=== PATIENT | female | born 1955 | race Caucasian/White ===

== ENCOUNTER → 2018-01-20 16:32 | Outpatient (CLI) | payer MEDICAID, SELFPAY ==
[2018-01-20 19:37] LABS: Calcium 10.3 mg/dL (8.5-10.1); Free T4 (Free Thyroxine) 1.58 ng/dl (0.76-1.46); Triiodothryronine (T3) Uptake 34 % (31-39)
[2018-01-20 19:47] LABS: Thyroid Stimulating Hormone < 0.01 uIU/ml (0.358-3.740)
== END ==
PROVIDERS: Family Provider Emergency Medicine; PCP Nurse Practitioner Family; Visit Provider Otolaryngology
DX: E04.9 Nontoxic goiter, unspecified (principal)
CPT/HCPCS: 36415; 82310; 84439; 84443; 84479

== ENCOUNTER → 2018-02-07 12:59 | Outpatient (CLI) | payer MEDICAID, SELFPAY ==
--- NOTE | 2018-02-07 13:02 | US_ITS ---
US thyroid HISTORY: Multinodular goiter ITS.REASON: goiter ORDERING PHYSICIAN: Julio Laureano MD PATIENT AGE: 62 years Comparison: None FINDINGS: The right lobe is 5.1 x 3.1 x 4.2 cm. Multiple nodules are once again noted in both cystic and solid components. As mentioned previously is difficult to separate the nodules due to their multiplicity and similar characteristics. The largest single appearing nodule is in the upper pole at 2.7 cm have an a spongiform appearance. This nodule previously measured 2.2 cm. No highly suspicious nodules are evident. The left lobe is 4.7 x 2.7 x 2.4 cm also containing numerous nodules difficult to separate. The largest nodules in the mid polar region at 2.2 cm. IMPRESSION: Multinodular goiter as described above.
== END ==
PROVIDERS: PCP Nurse Practitioner Family; Visit Provider Otolaryngology
DX: E04.9 Nontoxic goiter, unspecified (principal)
CPT/HCPCS: 76536

== ENCOUNTER → 2018-02-14 16:16 | Outpatient (CLI) | payer MEDICAID, SELFPAY ==
[2018-02-17 06:59] LABS: Parathyroid Hormone Intact 49 pg/mL (15-65)
== END ==
PROVIDERS: Visit Provider Otolaryngology
DX: E04.9 Nontoxic goiter, unspecified (principal)
CPT/HCPCS: 36415; 82330; 83970

== ENCOUNTER → 2018-02-22 12:01 | Outpatient (CLI) | payer MEDICAID, SELFPAY ==
--- NOTE | 2018-02-22 12:09 | US_ITS ---
FNA w guidance, US thyroid HISTORY: Thyroid nodules, dominant right nodule increasing in size ITS.REASON: THYROID NODULES ORDERING PHYSICIAN: uJlio Laureano MD PATIENT AGE: 62 years COMPARISON: None Prebiopsy ultrasound: Prebiopsy planning performed with ultrasound and a straight multiple thyroid nodules the largest in the upper lobe at 2.4 x 1.5 cm having both cystic and solid component. Biopsy planning performed TECHNIQUE: Following obtaining informed consent, using aseptic technique and local anesthesia with buffered lidocaine, fine-needle aspiration was performed of the nodule of interest using sonographic guidance. 3 passes were made into the nodule with a 25-gauge needle. Specimen was given to cytology. The patient tolerated the procedure well without evidence of immediate complications and left the ultrasound suite in stable condition. CYTOLOGY:Negative for malignancy, consistent with a benign goitrous follicular nodule IMPRESSION: Successful ultrasound-guided fine-needle aspiration of the dominant right thyroid nodule showing benign findings
--- NOTE | 2018-02-22 12:09 | US_ITS ---
FNA w guidance, US thyroid HISTORY: Thyroid nodules, dominant right nodule increasing in size ITS.REASON: THYROID NODULES ORDERING PHYSICIAN: Julio Laureano MD PATIENT AGE: 62 years COMPARISON: None Prebiopsy ultrasound: Prebiopsy planning performed with ultrasound and a straight multiple thyroid nodules the largest in the upper lobe at 2.4 x 1.5 cm having both cystic and solid component. Biopsy planning performed TECHNIQUE: Following obtaining informed consent, using aseptic technique and local anesthesia with buffered lidocaine, fine-needle aspiration was performed of the nodule of interest using sonographic guidance. 3 passes were made into the nodule with a 25-gauge needle. Specimen was given to cytology. The patient tolerated the procedure well without evidence of immediate complications and left the ultrasound suite in stable condition. CYTOLOGY:Negative for malignancy, consistent with a benign goitrous follicular nodule IMPRESSION: Successful ultrasound-guided fine-needle aspiration of the dominant right thyroid nodule showing benign findings
== END ==
PROVIDERS: PCP Nurse Practitioner Family; Visit Provider Otolaryngology
DX: E04.1 Nontoxic single thyroid nodule (principal)
CPT/HCPCS: 10022; 76536

== ENCOUNTER → 2018-06-14 12:46 | Outpatient (CLI) | payer OTHER, SELFPAY ==
--- NOTE | 2018-06-14 12:48 | US_ITS ---
US thyroid HISTORY: Follow-up multinodular goiter ITS.REASON: Goiter ORDERING PHYSICIAN: Julio Laureano MD PATIENT AGE: 62 years Comparison: 02/07/2018, 06/27/2015 FINDINGS: The right lobe is 6.3 x 2.4 x 4 cm. Multinodular goiter is once again noted with numerous bilateral complex spongiform-appearing nodules with the largest nodule on the right measuring up to 2.7 x 1.9 cm in the mid polar region similar to the previous exam. The left lobe measures 5.2 x 2.2 x 2.2 cm with multi spongiform-appearing nodules. The largest nodule on the left is 1.9 x 1.2 cm The isthmus is slightly thickened at 4 mm. There are small nodules at the isthmus 1.5 cm on the right and 1.4 cm on the left. IMPRESSION: No change multinodular goiter
[2018-06-14 23:21] LABS: Free T4 (Free Thyroxine) 1.69 ng/dl (0.76-1.46)
[2018-06-14 23:30] LABS: Thyroid Stimulating Hormone < 0.01 uIU/ml (0.358-3.740)
== END ==
PROVIDERS: PCP Nurse Practitioner Family; Visit Provider Otolaryngology
DX: E04.9 Nontoxic goiter, unspecified (principal)
CPT/HCPCS: 36415; 76536; 82330; 84439; 84443

== ENCOUNTER → 2018-06-14 13:49 | Outpatient (CLI) | payer OTHER, SELFPAY | PROVIDERS: Visit Provider Otolaryngology | DX: E04.9 Nontoxic goiter, unspecified (principal) ==

== ENCOUNTER → 2018-08-23 14:52 | Outpatient (POV) | payer OTHER, SELFPAY | PROVIDERS: Visit Provider Dermatology | DX: Z00.00 Encounter for general adult medical examination without abnormal findings (principal) ==

== ENCOUNTER → 2018-09-07 10:07 | Outpatient (CLI) | payer OTHER, SELFPAY ==
[2018-09-07 14:14] LABS: Basophils % 0.5 % (0.1-2.0); Eosinophils # 0.3 K/mm3 (0.0-0.4); Hematocrit 44.2 % (37.0-47.0); Hemoglobin 14.1 g/dL (12.2-16.2); Lymphocytes # 1.8 K/mm3 (0.7-4.5); Lymphocytes % 24.4 % (10-50); Mean Corpuscular Hemoglobin 28.6 pg (27.0-31.2); Mean Corpuscular Volume 89.4 fl (81-99); Mean Platelet Volume 8.3 fl (7.4-10.4); Monocytes # 0.5 K/mm3 (0.1-1.0); Monocytes % 7.3 % (1.7-9.3); Neutrophils # 4.7 K/mm3 (1.8-7.8); Neutrophils % 63.9 % (37.0-80.0); Platelet Count 389 K/mm3 (142-424); Red Blood Count 4.95 M/mm3 (4.20-5.40); White Blood Count 7.4 K/mm3 (4.8-10.8)
[2018-09-07 15:11] LABS: Alanine Aminotransferase 23 U/L (12-78); Albumin Level 3.8 gm/dL (3.4-5.0); Albumin/Globulin Ratio 1.4 (1.1-1.8); Alkaline Phosphatase 93 U/L (46-116); Anion Gap 13.3 mEq/L (5-15); Aspartate Amino Transferase 19 U/L (15-37); Bilirubin,Total 0.3 mg/dL (0.2-1.0); Blood Urea Nitrogen 14 mg/dL (7-18); Calcium 10.4 mg/dL (8.5-10.1); Carbon Dioxide 26 mmol/L (21.0-32.0); Chloride 98 mmol/L (98-107); Creatinine,Serum 0.83 mg/dL (0.55-1.02); Estimated Glomerular Filt Rate 70 ml/min (>60); Free T4 (Free Thyroxine) 1.52 ng/dl (0.76-1.46); GFR (African American) 84 ML/MIN (>60); Globulin 2.8 gm/dl (1.3-3.2); Glucose 98 mg/dL (74-106); Potassium 4.3 mmoL/L (3.5-5.1); Sodium 133 mmol/L (136-145); Thyroid Stimulating Hormone 0.01 uIU/ml (0.358-3.740); Total Protein,Serum 6.6 gm/dL (6.4-8.2)
[2018-09-09 20:43] LABS: Parathyroid Hormone Intact 40 pg/mL (15-65); Triiodothyronine (T3) Free 5.8 pg/mL (2.0-4.4)
== END ==
PROVIDERS: PCP Nurse Practitioner Family; Visit Provider Internal Medicine Endocrinology, Diabetes & Metabolism
DX: E05.20 Thyrotoxicosis with toxic multinodular goiter without thyrotoxic crisis or storm (principal); E83.52 Hypercalcemia; E34.9 Endocrine disorder, unspecified; R94.6 Abnormal results of thyroid function studies
CPT/HCPCS: 36415; 80053; 83970; 84439; 84443; 84481; 85025

== ENCOUNTER → 2018-11-08 09:21 | Outpatient (CLI) | payer OTHER, SELFPAY ==
[2018-11-08 14:22] LABS: Basophils % 0.5 % (0.1-2.0); Eosinophils # 0.1 K/mm3 (0.0-0.4); Eosinophils % 1.2 % (0.1-12.0); Hematocrit 40.4 % (37.0-47.0); Hemoglobin 13.5 g/dL (12.2-16.2); Lymphocytes # 1.5 K/mm3 (0.7-4.5); Lymphocytes % 23.2 % (10-50); Mean Corpuscular HGB Conc 33.5 g/dL (31.8-35.4); Mean Corpuscular Hemoglobin 29.3 pg (27.0-31.2); Mean Corpuscular Volume 87.6 fl (81-99); Mean Platelet Volume 7.8 fl (7.4-10.4); Monocytes # 0.6 K/mm3 (0.1-1.0); Neutrophils # 4.3 K/mm3 (1.8-7.8); Neutrophils % 66.1 % (37.0-80.0); Platelet Count 372 K/mm3 (142-424); Red Blood Count 4.61 M/mm3 (4.20-5.40); Red Cell Distribution Width 14.6 % (11.5-17.5); White Blood Count 6.6 K/mm3 (4.8-10.8)
[2018-11-08 14:59] LABS: Alanine Aminotransferase 17 U/L (12-78); Albumin Level 3.7 gm/dL (3.4-5.0); Albumin/Globulin Ratio 1.3 (1.1-1.8); Alkaline Phosphatase 110 U/L (46-116); Anion Gap 11.7 mEq/L (5-15); Aspartate Amino Transferase 15 U/L (15-37); Bilirubin,Total 0.4 mg/dL (0.2-1.0); Blood Urea Nitrogen 13 mg/dL (7-18); Calcium 10.1 mg/dL (8.5-10.1); Carbon Dioxide 29 mmol/L (21.0-32.0); Chloride 92 mmol/L (98-107); Creatinine,Serum 0.82 mg/dL (0.55-1.02); Estimated Glomerular Filt Rate 71 ml/min (>60); Free T4 (Free Thyroxine) 1.35 ng/dl (0.76-1.46); GFR (African American) 85 ML/MIN (>60); Globulin 2.9 gm/dl (1.3-3.2); Glucose 99 mg/dL (74-106); Potassium 3.7 mmoL/L (3.5-5.1); Sodium 129 mmol/L (136-145); Total Protein,Serum 6.6 gm/dL (6.4-8.2)
[2018-11-09 11:14] LABS: Triiodothyronine (T3) Free 5.9 pg/mL (2.0-4.4)
[2018-11-11 06:12] LABS: Sodium, Urine 37 mmol/L (Not Estab.)
[2018-11-11 06:14] LABS: Osmolality, Urine 208 mOsmol/kg (.)
== END ==
PROVIDERS: PCP Nurse Practitioner Family; Visit Provider Internal Medicine Endocrinology, Diabetes & Metabolism
DX: E05.20 Thyrotoxicosis with toxic multinodular goiter without thyrotoxic crisis or storm (principal); E34.9 Endocrine disorder, unspecified; R94.6 Abnormal results of thyroid function studies
CPT/HCPCS: 36415; 80053; 83935; 84300; 84439; 84443; 84481; 85025

== ENCOUNTER → 2018-11-17 12:08 | Outpatient (CLI) | payer OTHER, SELFPAY ==
--- NOTE | 2018-11-17 12:13 | XR_ITS ---
PROCEDURE: XR CHEST 2V cough. CLINICAL HISTORY: COUGH COMPARISON: No exams were available for comparison FINDINGS: the left minor and AP window no prior appears generous and mildly prominent compared to the right minor. No previous studies for comparison at this facility.. Any old cxr films for comparison be helpful, but if none available and this patient has significant history of smoking I would recommend a CT chest with contrast to further evaluate. This could be a prominent pulmonary artery shadow but with history of cough (and if history of smoking) this would benefit from further investigation with CT chest but the lungs otherwise appear clear and unremarkable.. Mild chronic changes. Heart is normal size with the aortic arch is calcified.. Normal pulmonary vascularity. Superior mediastinum and right minor unremarkable. No pleural effusions but degenerative changes T-spine. No rib lesions. Chest wall unremarkable IMPRESSION: Slightly prominent, slight generous left hilum.--but with history of cough and no prior studies for comparison this is enough to to warrant further investigation with follow-up CT chest with contrast. otherwise the lungs well expanded and clear with no additional findings. Mild chronic pulmonary changes bilaterally. Dictated by: Andrew Delgado MD 11/17/2018 15:39 Signed by: <Electronically signed by Andrew Delgado MD in [facility]> 11/17/2018 15:39
== END ==
PROVIDERS: PCP Nurse Practitioner Family; Visit Provider Internal Medicine Endocrinology, Diabetes & Metabolism
DX: R05 Cough (principal)
CPT/HCPCS: 71046

== ENCOUNTER → 2018-11-24 10:17 | Outpatient (CLI) | payer OTHER, SELFPAY ==
[2018-11-24 12:18] LABS: Blood Urea Nitrogen 8 mg/dL (7-18); Creatinine,Serum 0.81 mg/dL (0.55-1.02); Estimated Glomerular Filt Rate 71 ml/min (>60); GFR (African American) 86 ML/MIN (>60)
[2018-11-25 07:54] LABS: Anion Gap 8.6 mEq/L (5-15); Calcium 9.7 mg/dL (8.5-10.1); Carbon Dioxide 30 mmol/L (21.0-32.0); Chloride 103 mmol/L (98-107); Glucose 106 mg/dL (74-106); Potassium 4.6 mmoL/L (3.5-5.1); Sodium 137 mmol/L (136-145)
== END ==
PROVIDERS: Visit Provider Internal Medicine Endocrinology, Diabetes & Metabolism
DX: R05 Cough (principal); R91.8 Other nonspecific abnormal finding of lung field; Z72.0 Tobacco use
CPT/HCPCS: 36415; 80048; 82565; 84520

== ENCOUNTER → 2018-11-28 09:37 | Outpatient (CLI) | payer OTHER, SELFPAY ==
--- NOTE | 2018-11-28 09:53 | CT_ITS ---
PROCEDURE: CT CHEST W CON CLINICAL HISTORY: COPUGH, TOBACCO USE, ABNORMAL CXR Cough, tobacco use, chest x-ray, possible left hilar mass COMPARISON: XR CHEST 2V from 11/17/2018 TECHNIQUE: 75 mL Optiray 350 IV Axial images obtained with sagittal and coronal reformats. All CT scans at the facility use one or more dose reduction, viz: automated exposure control, ma/kV adjustment per patient size (including targeted exams where dose is matched to indication, i.e. head), or iterative reconstruction technique. FINDINGS: There is heterogeneous enlargement of both lobes and isthmus of the thyroid gland. No mediastinal or hilar mass or adenopathy is evident. Coronary artery calcifications are present. No evidence aortic aneurysm or central pulmonary embolus. The right and left pulmonary arteries are slightly prominent. There is a small hiatal hernia. There is hyperinflation with attenuation of the peripheral pulmonary vessels consistent with obstructive chronic bronchitis. Atelectatic or fibrotic changes are present in the right upper lobe posteriorly and right upper lobe anteriorly. No hilar mass evident. The prominent left hilum on the radiograph was likely due to the prominent pulmonary artery. No effusions or infiltrates. There are degenerative changes in the thoracic spine. Upper abdominal images shows a left adrenal mass which measures 4.8 by 2.8 cm. Right adrenal gland is slightly enlarged. IMPRESSION: 1. No evidence of hilar mass. 2. COPD with scattered fibrotic changes/scarring. 3. There is prominence of the right and left main pulmonary artery suggesting pulmonary arterial hypertension. The prominent pulmonary artery is likely cause of the radiographic abnormality 4. Coronary artery calcification. 5. Left adrenal mass. Recommend CT of the adrenals with adrenal protocol without and with contrast with delayed post enhanced images for further evaluation. Dictated by: Nelson Almonte MD 11/29/2018 18:26 Signed by: <Electronically signed by Nelson Almonte MD in [facility]> 11/29/2018 18:26
== END ==
PROVIDERS: PCP Nurse Practitioner Family; Visit Provider Internal Medicine Endocrinology, Diabetes & Metabolism
DX: R05 Cough (principal); R93.89 Abnormal findings on diagnostic imaging of other specified body structures; Z72.0 Tobacco use
CPT/HCPCS: 71260; Q9967

== ENCOUNTER → 2018-12-06 09:27 | Outpatient (CLI) | payer OTHER, SELFPAY ==
[2018-12-06 11:10] LABS: Anion Gap 10.7 mEq/L (5-15); Blood Urea Nitrogen 9 mg/dL (7-18); Calcium 9.9 mg/dL (8.5-10.1); Carbon Dioxide 31 mmol/L (21.0-32.0); Chloride 105 mmol/L (98-107); Creatinine,Serum 0.93 mg/dL (0.55-1.02); Estimated Glomerular Filt Rate 61 ml/min (>60); GFR (African American) 74 ML/MIN (>60); Glucose 97 mg/dL (74-106); Potassium 4.7 mmoL/L (3.5-5.1); Sodium 142 mmol/L (136-145)
[2018-12-13 14:57] LABS: Renin Activity, Plasma 0.439 ng/mL/hr (0.167-5.380)
== END ==
PROVIDERS: Visit Provider Internal Medicine Endocrinology, Diabetes & Metabolism
DX: D44.10 Neoplasm of uncertain behavior of unspecified adrenal gland (principal)
CPT/HCPCS: 36415; 80048; 82088; 82626; 84244

== ENCOUNTER → 2018-12-08 08:30 | Outpatient (CLI) | payer OTHER, SELFPAY ==
[2018-12-13 14:57] LABS: Metanephrine, U,24hr 170 ug/24 hr (45-290); Metanephrine, Ur 33 ug/L (Undefined); Normetanephr.,U,24h 592 ug/24 hr (82-500); Normetanephrine, Ur 115 ug/L (Undefined)
== END ==
PROVIDERS: Visit Provider Internal Medicine Endocrinology, Diabetes & Metabolism
DX: D44.10 Neoplasm of uncertain behavior of unspecified adrenal gland (principal)
CPT/HCPCS: 83835

== ENCOUNTER → 2018-12-09 08:19 | Outpatient (CLI) | payer OTHER, SELFPAY ==
[2018-12-13 10:31] LABS: Adrenocorticotropic Hormone 1.9 pg/mL (7.2-63.3)
== END ==
PROVIDERS: Visit Provider Internal Medicine Endocrinology, Diabetes & Metabolism
DX: D44.10 Neoplasm of uncertain behavior of unspecified adrenal gland (principal)
CPT/HCPCS: 36415; 82024; 82533

== ENCOUNTER → 2018-12-13 08:20 | Outpatient (CLI) | payer OTHER, SELFPAY ==
--- NOTE | 2018-12-13 08:26 | CT_ITS ---
PROCEDURE: CT ABDOMEN PELVIS WO/W CON CLINICAL INDICATION: ADRENAL ADENOMIA Follow-up left adrenal mass seen on the recent chest CT COMPARISON: CT CHEST W CON from 11/28/2018 TECHNIQUE: IV Contrast: 75 mL Optiray 350 Oral Contrast Readi-Cat Axial images obtained with sagittal and coronal reformats. All CT scans at the facility use one or more dose reduction, viz: automated exposure control, ma/kV adjustment per patient size (including targeted exams where dose is matched to indication, i.e. head), or iterative reconstruction technique. FINDINGS: COPD/emphysematous changes noted in the lung bases. Exam is performed without and with contrast with 60 second and 15 minutes delays. Left adrenal mass is present at 2.6 x 5 cm. The unenhanced density measures -8 Hounsfield units consistent with an adenoma. Right adrenal gland is slightly enlarged with an unenhanced density of -12 Hounsfield units. The right adrenal nodule measures 2 by 1.2 cm. The immediate post enhanced density of the left adrenal gland is 41 Hounsfield units with a washout images showing a density of 1 Hounsfield unit. These findings are all consistent with an adrenal adenoma. There is a 5 mm hypoattenuating lesion in the central aspect of the right hepatic lobe nonspecific too small to categorize. There is an additional 5 mm hypoattenuating lesion in the right hepatic lobe the inferiorly. The spleen and pancreas are unremarkable. Gallbladder has an unremarkable appearance. There are bilateral renal cysts. There is colonic diverticulosis but no evidence of diverticulitis. No evidence of appendicitis. No intestinal obstruction or free air. No pelvic mass abnormal fluid collection or focal inflammatory change of the pelvis. No acute bony anomaly. IMPRESSION: 1. Left adrenal mass and right adrenal nodules are both consistent with adenomas. Would recommend a six-month follow-up which can be performed without contrast secondary to the large size of the left adrenal mass. 2. Colonic diverticulosis Dictated by: Nelson Almonte MD 12/14/2018 11:26 Electronically signed by Nelson Almonte MD in [place] 12/14/2018 11:26
== END ==
PROVIDERS: PCP Nurse Practitioner; Visit Provider Internal Medicine Endocrinology, Diabetes & Metabolism
DX: D44.10 Neoplasm of uncertain behavior of unspecified adrenal gland (principal)
CPT/HCPCS: 74178; Q9967

== ENCOUNTER → 2018-12-24 10:13 | Outpatient (CLI) | payer OTHER, SELFPAY ==
[2018-12-28 10:49] LABS: Cortisol,F,ug/24hr,U 25 ug/24 hr (6-42); Cortisol,F,ug/L,U 8 ug/L (Undefined)
== END ==
PROVIDERS: Visit Provider Internal Medicine Endocrinology, Diabetes & Metabolism
DX: E05.20 Thyrotoxicosis with toxic multinodular goiter without thyrotoxic crisis or storm (principal); E87.1 Hypo-osmolality and hyponatremia; D44.10 Neoplasm of uncertain behavior of unspecified adrenal gland; J44.9 Chronic obstructive pulmonary disease, unspecified
CPT/HCPCS: 82530

== ENCOUNTER → 2019-01-14 14:34 | Outpatient (CLI) | payer OTHER, SELFPAY ==
[2019-01-14 15:25] LABS: Basophils % 0.4 % (0.1-2.0); Eosinophils % 0.3 % (0.1-12.0); Hematocrit 41.7 % (37.0-47.0); Hemoglobin 12.4 g/dL (12.2-16.2); Lymphocytes % 24.8 % (10-50); Mean Corpuscular HGB Conc 29.6 g/dL (31.8-35.4); Mean Corpuscular Hemoglobin 27.9 pg (27.0-31.2); Mean Corpuscular Volume 94.4 fl (81-99); Mean Platelet Volume 7.6 fl (7.4-10.4); Monocytes # 0.8 K/mm3 (0.1-1.0); Monocytes % 9.5 % (1.7-9.3); Neutrophils # 5.3 K/mm3 (1.8-7.8); Platelet Count 298 K/mm3 (142-424); Red Blood Count 4.42 M/mm3 (4.20-5.40); White Blood Count 8.1 K/mm3 (4.8-10.8)
[2019-01-14 15:43] LABS: Alanine Aminotransferase 11 U/L (12-78); Albumin Level 3.4 gm/dL (3.4-5.0); Albumin/Globulin Ratio 1.2 (1.1-1.8); Alkaline Phosphatase 144 U/L (46-116); Anion Gap 13.3 mEq/L (5-15); Aspartate Amino Transferase 13 U/L (15-37); Bilirubin,Total 0.3 mg/dL (0.2-1.0); Blood Urea Nitrogen 10 mg/dL (7-18); Calcium 9.2 mg/dL (8.5-10.1); Carbon Dioxide 28 mmol/L (21.0-32.0); Chloride 102 mmol/L (98-107); Creatinine,Serum 0.82 mg/dL (0.55-1.02); Estimated Glomerular Filt Rate 70 ml/min (>60); Free T4 (Free Thyroxine) 0.71 ng/dl (0.76-1.46); GFR (African American) 85 ML/MIN (>60); Globulin 2.8 gm/dl (1.3-3.2); Glucose 95 mg/dL (74-106); Potassium 4.3 mmoL/L (3.5-5.1); Sodium 139 mmol/L (136-145); T4 (Thyroxine) 7.7 ug/dl (4.7-13.3); Thyroid Stimulating Hormone 0.02 uIU/ml (0.358-3.740); Total Protein,Serum 6.2 gm/dL (6.4-8.2)
[2019-01-19 17:00] LABS: Triiodothyronine (T3) Free 3.5 pg/mL (2.0-4.4)
== END ==
PROVIDERS: Visit Provider Internal Medicine Endocrinology, Diabetes & Metabolism
DX: E05.20 Thyrotoxicosis with toxic multinodular goiter without thyrotoxic crisis or storm (principal); R94.6 Abnormal results of thyroid function studies; E87.1 Hypo-osmolality and hyponatremia
CPT/HCPCS: 36415; 80053; 84436; 84439; 84443; 84481; 85025

== ENCOUNTER → 2019-03-13 11:22 | Outpatient (CLI) | payer OTHER, SELFPAY ==
[2019-03-13 12:33] LABS: Basophils % 0.4 % (0.1-2.0); Eosinophils # 0.1 K/mm3 (0.0-0.4); Eosinophils % 1.1 % (0.1-12.0); Hematocrit 46.6 % (37.0-47.0); Hemoglobin 14.3 g/dL (12.2-16.2); Lymphocytes # 1.4 K/mm3 (0.7-4.5); Mean Corpuscular HGB Conc 30.6 g/dL (31.8-35.4); Mean Corpuscular Hemoglobin 28.5 pg (27.0-31.2); Mean Corpuscular Volume 93.1 fl (81-99); Mean Platelet Volume 9.7 fl (7.4-10.4); Monocytes # 0.6 K/mm3 (0.1-1.0); Monocytes % 8.2 % (1.7-9.3); Neutrophils # 4.7 K/mm3 (1.8-7.8); Neutrophils % 69.2 % (37.0-80.0); Platelet Count 161 K/mm3 (142-424); Red Cell Distribution Width 14.6 % (11.5-17.5); White Blood Count 6.9 K/mm3 (4.8-10.8)
[2019-03-13 14:24] LABS: Alanine Aminotransferase 10 U/L (12-78); Albumin Level 3.8 gm/dL (3.4-5.0); Albumin/Globulin Ratio 1.2 (1.1-1.8); Alkaline Phosphatase 162 U/L (46-116); Anion Gap 13.4 mEq/L (5-15); Aspartate Amino Transferase 13 U/L (15-37); Bilirubin,Total 0.3 mg/dL (0.2-1.0); Blood Urea Nitrogen 10 mg/dL (7-18); Calcium 9.7 mg/dL (8.5-10.1); Carbon Dioxide 31 mmol/L (21.0-32.0); Chloride 104 mmol/L (98-107); Creatinine,Serum 0.89 mg/dL (0.55-1.02); Estimated Glomerular Filt Rate 64 ml/min (>60); Free T4 (Free Thyroxine) 0.78 ng/dl (0.76-1.46); GFR (African American) 78 ML/MIN (>60); Globulin 3.1 gm/dl (1.3-3.2); Glucose 74 mg/dL (74-106); Potassium 4.4 mmoL/L (3.5-5.1); Sodium 144 mmol/L (136-145); Thyroid Stimulating Hormone 0.02 uIU/ml (0.358-3.740); Total Protein,Serum 6.9 gm/dL (6.4-8.2)
[2019-03-14 14:47] LABS: Triiodothyronine (T3) Free 3.8 pg/mL (2.0-4.4)
== END ==
PROVIDERS: Visit Provider Internal Medicine Endocrinology, Diabetes & Metabolism
DX: E05.20 Thyrotoxicosis with toxic multinodular goiter without thyrotoxic crisis or storm (principal); D49.7 Neoplasm of unspecified behavior of endocrine glands and other parts of nervous system
CPT/HCPCS: 36415; 80053; 84439; 84443; 84481; 85025

== ENCOUNTER → 2019-06-01 10:25 | Outpatient (CLI) | payer OTHER, SELFPAY ==
[2019-06-01 12:01] LABS: Blood Urea Nitrogen 6 mg/dl (7-17); Estimated Glomerular Filt Rate 72 ml/min (>60); GFR (African American) 88 ML/MIN (>60)
== END ==
PROVIDERS: Visit Provider Internal Medicine Endocrinology, Diabetes & Metabolism
DX: Z01.818 Encounter for other preprocedural examination (principal)
CPT/HCPCS: 36415; 82565; 84520

== ENCOUNTER → 2019-06-05 08:35 | Outpatient (CLI) | payer OTHER, SELFPAY ==
--- NOTE | 2019-06-05 08:42 | CT_ITS ---
PROCEDURE: CT ABDOMEN PELVIS WO/W CON CLINICAL INDICATION: ADRENAL PROTCOL Bilateral adrenal nodules, left adrenal mass follow-up COMPARISON: CT ABDOMEN PELVIS WO/W CON from 12/13/2018 TECHNIQUE: IV Contrast: 75ML OPTIRAY 350 Oral Contrast none Axial images obtained with sagittal and coronal reformats. All CT scans at the facility use one or more dose reduction, viz: automated exposure control, ma/kV adjustment per patient size (including targeted exams where dose is matched to indication, i.e. head), or iterative reconstruction technique. FINDINGS: LOWER THORAX: Artery calcification ABDOMEN & PELVIS: Hypodense left adrenal nodule once again noted overall not significantly changed consistent with bilateral adrenal adenomas. There is rapid washout contrast. The there are scattered hypodense small lesions of the liver consistent cysts not significantly changed. No change in the 2.4 cm right renal cyst. The spleen and pancreas have an unremarkable appearance. There is colonic diverticulosis without evidence of diverticulitis. Degenerative changes are present in the lumbar spine. IMPRESSION: Overall no change in the bilateral adrenal nodules consistent with adenomas. Annual follow-up suggested. Dictated by: Nelson Almonte MD 06/05/2019 14:54 Electronically signed by Nelson Almonte MD in [facility] 06/05/2019 14:54
== END ==
PROVIDERS: PCP Nurse Practitioner; Visit Provider Internal Medicine Endocrinology, Diabetes & Metabolism
DX: D44.10 Neoplasm of uncertain behavior of unspecified adrenal gland (principal)
CPT/HCPCS: 74178; Q9967

== ENCOUNTER → 2019-06-29 10:42 | Outpatient (CLI) | payer OTHER, SELFPAY ==
[2019-06-29 11:39] LABS: Basophils # 0.1 K/mm3 (0-0.2); Basophils % 0.8 % (0.1-2.0); Eosinophils # 0.1 K/mm3 (0.0-0.4); Eosinophils % 1.1 % (0.1-12.0); Hematocrit 42.1 % (37.0-47.0); Hemoglobin 13.6 g/dL (12.2-16.2); Lymphocytes # 1.6 K/mm3 (0.7-4.5); Lymphocytes % 21.5 % (10-50); Mean Corpuscular HGB Conc 32.4 g/dL (31.8-35.4); Mean Corpuscular Hemoglobin 28.6 pg (27.0-31.2); Mean Corpuscular Volume 88.5 fl (81-99); Mean Platelet Volume 7.6 fl (7.4-10.4); Monocytes # 0.6 K/mm3 (0.1-1.0); Monocytes % 7.6 % (1.7-9.3); Neutrophils # 5.1 K/mm3 (1.8-7.8); Platelet Count 282 K/mm3 (142-424); Red Blood Count 4.76 M/mm3 (4.20-5.40); Red Cell Distribution Width 15.5 % (11.5-17.5); White Blood Count 7.4 K/mm3 (4.8-10.8)
[2019-06-29 12:58] LABS: Chloride 102 mmol/L (98-107); Sodium 139 mmol/L (136-145)
[2019-06-29 12:59] LABS: Potassium 4.4 mmoL/L (3.5-5.1)
[2019-06-29 13:01] LABS: Alanine Aminotransferase 9 U/L (12-78); Albumin Level 4.2 g/dl (3.5-5.0); Albumin/Globulin Ratio 1.8 (1.1-1.8); Alkaline Phosphatase 116 U/L (38-126); Anion Gap 8.4 mEq/L (5-15); Aspartate Amino Transferase 23 U/L (14-36); Bilirubin,Total 0.2 mg/dl (0.2-1.3); Blood Urea Nitrogen 10 mg/dl (7-17); Carbon Dioxide 33 mmol/L (22.0-30.0); Estimated Glomerular Filt Rate 72 ml/min (>60); GFR (African American) 88 ML/MIN (>60); Globulin 2.3 g/dL (1.3-3.2); Total Protein,Serum 6.5 g/dl (6.3-8.2)
[2019-06-29 13:02] LABS: Calcium 10.3 mg/dl (8.4-10.2); Glucose 89 mg/dl (74-100)
[2019-06-29 13:18] LABS: Free T4 (Free Thyroxine) 0.66 ng/dl (0.78-2.19)
[2019-06-29 13:33] LABS: Thyroid Stimulating Hormone 2.12 uIU/mL (0.465-4.68)
[2019-06-30 08:59] LABS: Triiodothyronine (T3) Free 3.7 pg/mL (2.0-4.4)
[2019-07-01 16:10] LABS: C-Telopeptide Serum 1364 pg/mL (.)
[2019-07-03 13:08] LABS: Alkaline Phosphatase 143 IU/L (39-117); Bone Fraction: 56 % (14-68); Liver Fraction: 44 % (18-85)
[2019-07-03 13:59] LABS: Intestinal Frac.: 1 % (0-18)
== END ==
PROVIDERS: Visit Provider Internal Medicine Endocrinology, Diabetes & Metabolism
DX: D49.7 Neoplasm of unspecified behavior of endocrine glands and other parts of nervous system (principal); E05.90 Thyrotoxicosis, unspecified without thyrotoxic crisis or storm; E34.9 Endocrine disorder, unspecified; R94.6 Abnormal results of thyroid function studies; M81.8 Other osteoporosis without current pathological fracture
CPT/HCPCS: 36415; 80053; 82523; 84075; 84080; 84439; 84443; 84481; 85025

== ENCOUNTER → 2020-02-15 12:33 | Outpatient (CLI) | payer OTHER, SELFPAY ==
[2020-02-15 13:55] LABS: Alanine Aminotransferase 14 U/L (12-78); Albumin Level 4.3 g/dl (3.5-5.0); Albumin/Globulin Ratio 1.7 (1.1-1.8); Alkaline Phosphatase 98 U/L (38-126); Anion Gap 11.9 mEq/L (5-15); Aspartate Amino Transferase 28 U/L (14-36); Bilirubin,Total 0.3 mg/dl (0.2-1.3); Blood Urea Nitrogen 10 mg/dl (7-17); Calcium 10.8 mg/dl (8.4-10.2); Carbon Dioxide 30 mmol/L (22.0-30.0); Chloride 105 mmol/L (98-107); Chol/HDL Ratio 2.7 (1-3.5); Cholesterol 146 mg/dl (140-200); Estimated Glomerular Filt Rate 72 ml/min (>60); GFR (African American) 87 ML/MIN (>60); Globulin 2.6 g/dL (1.3-3.2); Glucose 95 mg/dl (74-100); HDL Cholesterol 55 mg/dl (40-60); Potassium 4.9 mmoL/L (3.5-5.1); Sodium 142 mmol/L (136-145); Total Protein,Serum 6.9 g/dl (6.3-8.2); Triglycerides 81 mg/dl (30-150); VLDL Cholesterol 16 mg/dL (0-40)
[2020-02-15 14:05] LABS: Direct LDL Cholesterol 78.56 mg/dL (100-129)
[2020-02-15 14:11] LABS: Free T4 (Free Thyroxine) 0.77 ng/dl (0.78-2.19)
[2020-02-15 14:26] LABS: Thyroid Stimulating Hormone 0.32 uIU/mL (0.465-4.68)
[2020-02-17 14:53] LABS: Triiodothyronine (T3) Free 3.8 pg/mL (2.0-4.4)
== END ==
PROVIDERS: Visit Provider Nurse Practitioner Family
DX: Z79.899 Other long term (current) drug therapy (principal)
CPT/HCPCS: 36415; 80053; 80061; 84439; 84443; 84481

== ENCOUNTER → 2020-04-05 07:44 | Outpatient (CLI) | payer OTHER, SELFPAY | PROVIDERS: PCP Internal Medicine Adolescent Medicine; Visit Provider Internal Medicine | DX: D35.00 Benign neoplasm of unspecified adrenal gland (principal) | CPT/HCPCS: 36415; 82533 ==

== ENCOUNTER → 2020-05-31 09:47 | Outpatient (CLI) | payer OTHER, SELFPAY ==
--- NOTE | 2020-05-31 09:51 | MM_ITS ---
PROCEDURE: MM DIG SCREENING MAMM BI W/CAD Digital Breast Tomosynthesis Included CLINICAL INDICATION: SCREENING There is no personal or family history of breast cancer. COMPARISON: MG DIG MAMMO BILAT SCREENING from 09/10/2009 TECHNIQUE: Standard CC and MLO images and 3D Tomosynthesis was obtained. R2 CAD reviewed. FINDINGS: The breasts are composed primarily of fat with minimal scattered fibroglandular densities in each breast. There is a stable nodular density upper central portion right breast likely a small intramammary node. There is no suspicious lesion and no suspicious microcalcifications. IMPRESSION: Fatty type breast parenchyma with no suspicious lesions seen BI-RAD Category: 1 Negative FOLLOW-UP: 1YR 1 Year Follow-up (A letter has been sent to the patient regarding results of the study.) Dictated by: Dr. Humberto Zhang MD 06/06/2020 13:49 Dr. Humberto Zhang MD in [place] 06/06/2020 13:49
== END ==
PROVIDERS: PCP Internal Medicine Adolescent Medicine; Visit Provider Nurse Practitioner Family
DX: Z12.31 Encounter for screening mammogram for malignant neoplasm of breast (principal)
CPT/HCPCS: 77063; 77067

== ENCOUNTER → 2020-06-18 08:10 | Outpatient (POV) | payer OTHER, SELFPAY | PROVIDERS: Visit Provider Dermatology | DX: Z00.00 Encounter for general adult medical examination without abnormal findings (principal) ==

== ENCOUNTER → 2020-07-17 08:48 | Outpatient (CLI) | payer OTHER, SELFPAY ==
[2020-07-17 10:16] LABS: Coronavirus 19 IgG Antibody Positive (Negative); Coronavirus 19 IgM Antibody Negative (Negative)
== END ==
PROVIDERS: Visit Provider Internal Medicine Gastroenterology
DX: Z01.812 Encounter for preprocedural laboratory examination (principal); Z20.822 Contact with and (suspected) exposure to COVID-19; Z12.11 Encounter for screening for malignant neoplasm of colon
CPT/HCPCS: 36415; 86328

== ENCOUNTER 2020-07-19 08:24 | Day surgery (SDC) | payer OTHER, SELFPAY ==
[2020-07-15 09:35] VITALS: BMI 39.6
[2020-07-19 08:49] VITALS: BP 140/81; PULSE 72; RESP 18; TEMP 36.4; O2SAT 91
[2020-07-19 09:35] VITALS: O2SAT 97
--- NOTE | 2020-07-19 10:02 | P.PCN_ITS ---
[facility] Procedure Note Procedure Note:: Colonoscopy Procedure Report: Colonoscopy with cold snare polypectomy Endoscopist: Jomar Toledo II, MD Referring physician: Sarina ALEJANDRA Date of Procedure: July 19, 2020 Equipment: Olympus 190 variable stiffness pediatric colonoscope Sedation: MAC sedation Indication: Mrs. Jung is a 64-year-old female who is here for follow-up screening/surveillance colonoscopy. The patient does state that her twin brother had widespread metastatic cancer that was presumptively colon cancer in his early 50s. He did have a colostomy. The patient does have some chronic constipation for which she takes MiraLAX. She does state that she has some incomplete defecation and may get some sacral back pain after a bowel movement. Her last colonoscopy was nearly 10 years ago (February 2012) at which time she had a single polyp (hyperplastic polyp) removed. The patient did have a colonoscopy in May 2006 and had 2 polyps (tubular adenoma x1/hyperplastic polyp x1) removed. She reports no rectal bleeding, abdominal pain or weight loss. Procedure: Prior to the procedure, a history and physical exam was performed, and patient's medications and allergies were reviewed. The risks, benefits and alternatives of the sedation and procedure were discussed with the patient. All questions were answered and informed consent was obtained. The patient was brought to the procedure room. Patient identification and proposed procedure were verified by the physician and the nurse. The patient was placed in a left lateral decubitus position and the scope was passed under direct vision. Throughout the procedure, the patient's blood pressure, pulse, and oxygen saturations were monitored continuously. The colonoscopy was accomplished without difficulty. The patient tolerated the procedure well. Findings: On digital rectal examination there was normal rectal tone. There were no external hemorrhoids. The colonoscope was introduced through the anal canal to the rectum and advanced to the cecum. The ileocecal valve and appendiceal orifice were identified. The scope was advanced a short distance into the ileum which appeared grossly normal. The scope was then withdrawn into the colon. There were 3 diminutive colon polyps (ascending x2 (4 and 4 mm) and sigmoid x1 (4 mm)) which were removed via cold snare polypectomy. The remaining cecum, ascending and transverse colon and mucosa were grossly normal. There were scattered extensive diverticuli throughout the descending and sigmoid colon (L EFT colon). The rectum itself was normal. Upon retroflexion within the rectum there were grade 1-2 internal hemorrhoids. The preparation was excellent throughout with [place] Preparation Score of 9. The cecal time was 11 minutes. Impression: 1. Diminutive colonic polyps x3 2. Left-sided diverticulosis 3. Grade 1-2 internal hemorrhoids Plan: I will follow up the polyp histology. Based upon her family history and polyps, I would recommend surveillance colonoscopy again in 5 years. I would continue MiraLAX with combined Metamucil on a long-term daily maintenance basis.
[2020-07-19 10:03] VITALS: BP 110/60; PULSE 77; RESP 18; TEMP 36.8; O2SAT 94
[2020-07-19 10:15] VITALS: BP 138/78; PULSE 76; RESP 18; O2SAT 94
[2020-07-19 10:27] VITALS: BP 133/84; PULSE 76; RESP 18; O2SAT 93
[2020-07-19 10:30] VITALS: BP 134/80; PULSE 76; RESP 18; O2SAT 95
--- NOTE | 2020-07-19 15:03 | P.PN_ITS ---
[facility] Anesthesia Checklist - Patient Identification Patient Identification: Arm Band - Structural Data Admitted From: Home Planned Operative Procedure/s: Colonoscopy Consent for Planned Operative Procedure(s) Verified: Yes Verified Documents: Surgical Consent, History and Physical - NPO Status Verified Time NPO: 00:00 - Airway Assessment Dentition: Good Dentition - Neurological Assessment Level of Consciousness: Awake, Alert - Anesthesia Plan Anesthesia Risk discussed: Yes Anesthesia Plan: Verified ASA Class: III Anesthesia Type: MAC [facility] History Medical History: Reports:: Chronic Obstructive Pulmonary Disease (COPD), Hyperlipidemia, Hypertension Denies:: Cancer, Diabetes Mellitus Type 1, Diabetes Mellitus Type 2, Internal Pacemaker, MRSA, Seizures *Have you ever received a pneumonia vaccine?: Yes *Have you received a flu vaccine this season?: Yes Other Medical History: Reports: Hypothyroidism Anesthesia experience/problems:: None Laterality Cases: Bilateral: Other Other Surgeries: Yes: Other. No: Pacemaker Amputation: No Fractures: No - *Social History Last grade of school completed: Some college Smoking Status: Current every day smoker Tobacco Type: cigarettes # Packs/Day (cigarettes): 1 Alcohol Intake: never Substance Use Type: denies use *Occupational Status:: retired Housing: house Household Members: spouse *Travel in the last 8 weeks: None Family Hx:: Cancer, Stroke
== END 2020-07-19 10:41 | disposition home or self-care (01) ==
LOC: OUTP 08:25
PROVIDERS: PCP Internal Medicine Adolescent Medicine; Visit Provider Internal Medicine Gastroenterology
PROC: 0DJD8ZZ Inspection of Lower Intestinal Tract, Via Natural or Artificial Opening Endoscopic (ICD-10-PCS; CPT 45378; principal; 2020-07-19 09:30)
DX: Z12.11 Encounter for screening for malignant neoplasm of colon (principal); Z80.0 Family history of malignant neoplasm of digestive organs; Z86.010 Personal history of colon polyps; K63.5 Polyp of colon; K57.30 Diverticulosis of large intestine without perforation or abscess without bleeding; K64.0 First degree hemorrhoids; I10 Essential (primary) hypertension; E78.5 Hyperlipidemia, unspecified; Z83.3 Family history of diabetes mellitus; Z82.49 Family history of ischemic heart disease and other diseases of the circulatory system; Z88.8 Allergy status to other drugs, medicaments and biological substances; Z79.899 Other long term (current) drug therapy
CPT/HCPCS: 45385

== ENCOUNTER → 2020-07-22 08:05 | Outpatient (CLI) | payer OTHER, SELFPAY ==
--- NOTE | 2020-07-22 08:09 | CT_ITS ---
PROCEDURE: CT ABDOMEN WO CON CLINICAL HISTORY: ADRENAL NODULE Follow-up adrenal nodule COMPARISON: CT CT CHEST W CON from 11/28/[address] ABDOMEN PELVIS WO/W CON from 06/05/2019 TECHNIQUE: Axial images obtained with sagittal and coronal reformats. All CT scans at the facility use one or more dose reduction, viz: automated exposure control, ma/kV adjustment per patient size (including targeted exams where dose is matched to indication, i.e. head), or iterative reconstruction technique. FINDINGS: Images of the lower chest demonstrates a lobulated mass in the left lower lobe anteriorly. This was not present on 11/28/2018exam exam. This area was not imaged on 06/05/2019exam exam. Suggest CT of the chest without and with contrast for further evaluation. This area measures approximately 3 by 2 cm and is incompletely imaged. There are atelectatic or fibrotic changes in the right middle lobe, lingula, and right lower lobe laterally There are bilateral adrenal nodules. The left adrenal mass measures 4.4 by 3 cm with an internal density at -18 Hounsfield units. There is a right adrenal nodule measuring 14 by 13 mm with an internal density of -16 Hounsfield units. These are consistent with bilateral adenomas inter not significantly changed. There is a 2.3 cm right renal cyst. The liver, spleen, left kidney, and pancreas have an unremarkable appearance. No evidence of appendicitis. There is a mild amount of retained colonic feces. There are degenerative changes in the lumbar spine and lower thoracic spine IMPRESSION: 1. No change bilateral adrenal adenomas. 2. Left lower lung mass. Suggest chest CT without and with contrast for further evaluation. Dictated by: Nelson Almonte MD 07/23/2020 11:36 Nelson Almonte MD in [facility] 07/23/2020 11:36
== END ==
PROVIDERS: PCP Nurse Practitioner Family; Visit Provider Surgery
DX: E27.8 Other specified disorders of adrenal gland (principal)
CPT/HCPCS: 74150

== ENCOUNTER → 2020-08-05 14:33 | Outpatient (CLI) | payer OTHER, SELFPAY ==
[2020-08-05 16:06] LABS: Blood Urea Nitrogen 8 mg/dl (7-17); Estimated Glomerular Filt Rate 72 ml/min (>60); GFR (African American) 87 ML/MIN (>60)
== END ==
PROVIDERS: Visit Provider Nurse Practitioner Family
DX: Z01.818 Encounter for other preprocedural examination (principal)
CPT/HCPCS: 36415; 82565; 84520

== ENCOUNTER → 2020-08-06 12:35 | Outpatient (CLI) | payer OTHER, SELFPAY ==
--- NOTE | 2020-08-06 12:41 | CT_ITS ---
PROCEDURE: CT CHEST WO/W CON CLINCAL INDICATION: LUNG MASS Follow-up lung mass COMPARISON: CT CT CHEST W CON from 11/28/[address] ABDOMEN WO CON from 07/22/2020 TECHNIQUE: IV Contrast: 75ml Isovue 370 Axial images obtained with sagittal and coronal reformats. All CT scans at the facility use one or more dose reduction, viz: automated exposure control, ma/kV adjustment per patient size (including targeted exams where dose is matched to indication, i.e. head), or iterative reconstruction technique. FINDINGS: HEART AND MEDIASTINAL STRUCTURES: Thyroid gland is diffusely enlarged with heterogeneous density/multiple small hypodense nodules consistent with goiter. No evidence of mediastinal adenopathy. LUNGS AND PLEURAL SPACES: There is a 4.1 x 2.6 x 3.7 cm longitudinal AP and transverse lobulated soft tissue mass within the superior segment the left lower lobe medially abutting the medial aspect of the superior segmental bronchus to the left lower lobe. This may be amenable to biopsy via bronchoscopy. Pulmonary consult suggested. The nodule is slightly larger compared to 07/22/2020. The nodule was incompletely imaged on that exam measuring at least 3.7 x 2.4 cm transverse and AP. There are COPD changes with mild coarsening of the bronchovascular markings suggesting smoking related lung disease. Minimal atelectatic changes are present in the right lung base. Atelectatic change or scarring noted in the right middle lobe and lingula in the left lung base. BONY STRUCTURES: There are degenerative changes in the thoracic spine. Unusual area of gas density is noted in the T8 vertebral body on the left linear in nature and may have extended from the disc space. No obvious lytic or blastic changes. UPPER ABDOMEN: Bilateral adrenal masses are present left larger than right measuring up to 5 x 3 cm on the left with an average density of -14 Hounsfield units. The left adrenal mass is not significantly changed. The right adrenal nodule measures 1.5 cm with a nonenhanced density -24 Hounsfield units also suggesting an adenoma but slightly increased in size from the 11/28/2018exam exam.. Right renal cyst is present. There are at least 2 stable hypodensities of the liver in the right hepatic lobe less than a cm each. ADDITIONAL FINDINGS: No other significant abnormalities. IMPRESSION: 1. Suspicious mass in the superior segment of the left lower lobe which appears slightly larger compared to 07/22/2020. The mass measures 4.1 x 2.6 by 3.7 cm. The nodule abuts the lateral aspect of the descending thoracic aorta and lies along the posterior aspect of the superior segmental medial basilar segmental arteries to the left lower lobe and along the medial aspect of the superior segmental bronchus to the left lower lobe. This may be amenable to bronchoscopy directed biopsy. Pulmonary consult suggested.. 2. Bilateral adrenal masses largest on the left measuring -15 Hounsfield units at 5 by 3 cm suggesting adenomas.. Dictated by: Nelson Almonte MD 08/07/2020 06:00 Nelson Almonte MD in [place] 08/07/2020 06:00
== END ==
PROVIDERS: PCP Nurse Practitioner Family; Visit Provider Nurse Practitioner Family
DX: R91.8 Other nonspecific abnormal finding of lung field (principal)
CPT/HCPCS: 71270; Q9967

== ENCOUNTER → 2020-09-11 12:55 | Outpatient (CLI) | payer OTHER, SELFPAY | PROVIDERS: PCP Nurse Practitioner Family; Visit Provider Internal Medicine Pulmonary Disease | DX: R06.00 Dyspnea, unspecified (principal) | CPT/HCPCS: 94060; 94618; 94726; 94729 ==

== ENCOUNTER → 2020-09-20 08:47 | Outpatient (CLI) | payer OTHER, SELFPAY | PROVIDERS: Visit Provider Internal Medicine Critical Care Medicine | DX: Z01.812 Encounter for preprocedural laboratory examination (principal); Z11.52 Encounter for screening for COVID-19 | CPT/HCPCS: U0003 ==

== ENCOUNTER → 2020-10-02 11:32 | Outpatient (CLI) | payer OTHER, SELFPAY | PROVIDERS: Visit Provider Internal Medicine Gastroenterology | DX: Z01.812 Encounter for preprocedural laboratory examination (principal); Z20.822 Contact with and (suspected) exposure to COVID-19 | CPT/HCPCS: U0003 ==

== ENCOUNTER 2020-10-04 09:47 | Day surgery (SDC) | payer OTHER, SELFPAY ==
[2020-10-01 11:55] VITALS: BMI 41.1
[2020-10-04 10:19] VITALS: BP 121/62; PULSE 71; RESP 20; TEMP 36.5; O2SAT 95
--- NOTE | 2020-10-04 10:59 | HMH.ANESCL ---
[facility] Anesthesia Checklist - Patient Identification Patient Identification: Arm Band - Structural Data Admitted From: Home Planned Operative Procedure/s: egd Consent for Planned Operative Procedure(s) Verified: Yes Verified Documents: Surgical Consent, History and Physical - NPO Status Verified Time NPO: 00:00 - Additional verifications Anesthesia Reactions: No - Airway Assessment C-Spine Mobility Assessed: Yes (mp2) TMJ Mobility Assessed: Yes Dentition: Edentulous - Neurological Assessment Level of Consciousness: Awake, Alert - Anesthesia Plan Anesthesia Risk discussed: Yes Anesthesia Plan: Verified ASA Class: III Anesthesia Type: MAC [facility] History I have reviewed the patient's past medical history: Yes Medical History: Reports:: Cancer (lung), Chronic Obstructive Pulmonary Disease (COPD), Hyperlipidemia, Hypertension Denies:: Diabetes Mellitus Type 1, Diabetes Mellitus Type 2, Internal Pacemaker, MRSA, Seizures *Have you ever received a pneumonia vaccine?: Yes *Have you received a flu vaccine this season?: Yes Other Medical History: Reports: Hypothyroidism Anesthesia experience/problems:: nac Laterality Cases: Bilateral: Cataract, Other Other Surgeries: Yes: Colonoscopy, Other. No: Pacemaker Amputation: No Fractures: No - *Social History Last grade of school completed: Some college Smoking Status: Current every day smoker Tobacco Type: cigarettes # Packs/Day (cigarettes): 1 Alcohol Intake: never Substance Use Type: denies use *Occupational Status:: retired Housing: house Household Members: spouse *Travel in the last 8 weeks: None Family Hx:: Cancer, Diabetes, Heart Attack, Stroke, Thyroid Disorder
[2020-10-04 11:02] VITALS: O2SAT 96
--- NOTE | 2020-10-04 11:19 | [facility].PROC ---
[facility] Procedure Note Procedure Note:: Upper Endoscopy Procedure Report: Esophagogastroduodenoscopy with cold biopsies Endoscopost: Jomar Toledo II, MD Referring Physician: Sarina ALEJANDRA/Jaret Santos MD Date of Procedure: October 04, 2020 Equipment: Olympus GIF 190 standard upper endoscope Sedation: MAC sedation Indications: Mrs. Jung is a 64-year-old female who recently had a colonoscopy in July 2020 because of strong family history and had 3 diminutive colon polyps. The patient did have a PET scan on September 16, 2020 due to an abnormal finding on lung imaging. This did show a 3.5 cm mass that demonstrated significant increase in metabolic activity suspicious for malignancy in the superior segment of the left lower lobe. There appeared to be a small hiatal hernia with some increased metabolic activity in the stomach along the posterior fundus. The patient reports no abdominal pain, heartburn or reflux. She has had no dysphagia. She has had some recent nausea. Procedure: Prior to the procedure, a history and physical exam was performed, and patient's medications and allergies were reviewed. The risks, benefits and alternatives of the sedation and procedure were discussed with the patient. All questions were answered and informed consent was obtained. The patient was brought to the procedure room. Patient identification and proposed procedure were verified by the physician and the nurse. The patient was placed in a left lateral decubitus position and the scope was passed under direct vision. Throughout the procedure, the patient's blood pressure, pulse, and oxygen saturations were monitored continuously. The upper GI endoscopy was accomplished without difficulty. The patient tolerated the procedure well. Findings: The scope was passed directly into the upper esophagus and advanced to the third portion of the duodenum. There was a lipoma or submucosal polyp of the second/third portion of the duodenum. The remainder of the post bulbar duodenum, ampulla and duodenal bulb were normal with normal mucosa and conniventes. The scope was withdrawn through a normal duodenal bulb and pylorus into the stomach. There was some mild linear reactive gastropathy of the antrum. The remainder of the body and fundus of the stomach were grossly normal. Upon retroflexion there was a 3 cm hiatal hernia. 2 biopsies were taken in the antrum and along the lesser curvature for histology to rule out gastritis and/or H pylori. The scope was then withdrawn into the esophagus. The diaphragmatic hiatus was at 36 cm. The top of the gastric folds was at 33 cm. The top of the Z-line was at 30 cm with 3 cm segment of Danielle's ([place] classification C2M3). Narrowband imaging was utilized and there was no obvious areas of dysplasia but multiple biopsies were taken at 32 cm and 30 cm circumferentially. The remainder of the esophageal mucosa was normal. Impression: 1. 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 Medium size 3 cm hiatal hernia 3. Linear reactive gastropathy Plan: I will follow-up the biopsies. I would recommend long-term therapy with PPI for complicated GERD. Certainly if there is Danielle's with dysplasia, I would be concerned that this may be primary etiology of lung lesion. I suspect more likely that this lung lesion is a primary pulmonary lesion.
[2020-10-04 11:23] VITALS: BP 110/64; PULSE 75; RESP 18; TEMP 36.3; O2SAT 973
[2020-10-04 11:33] VITALS: BP 139/86; PULSE 79; RESP 18; TEMP 36.3; O2SAT 93
[2020-10-04 11:43] VITALS: BP 137/85; PULSE 79; RESP 18; TEMP 36.3; O2SAT 96
[2020-10-04 11:53] VITALS: BP 139/73; PULSE 76; RESP 18; TEMP 36.3; O2SAT 96
== END 2020-10-04 11:53 | disposition home or self-care (01) ==
LOC: OUTP 09:49
PROVIDERS: PCP Nurse Practitioner Family; Visit Provider Internal Medicine Gastroenterology
PROC: 0DJ08ZZ Inspection of Upper Intestinal Tract, Via Natural or Artificial Opening Endoscopic (ICD-10-PCS; CPT 43235; principal; 2020-10-04 11:00)
DX: K22.70 Barrett's esophagus without dysplasia (principal); K44.9 Diaphragmatic hernia without obstruction or gangrene; K31.9 Disease of stomach and duodenum, unspecified; J44.9 Chronic obstructive pulmonary disease, unspecified; E78.5 Hyperlipidemia, unspecified; I10 Essential (primary) hypertension; E03.9 Hypothyroidism, unspecified; Z85.118 Personal history of other malignant neoplasm of bronchus and lung; Z80.9 Family history of malignant neoplasm, unspecified; Z82.3 Family history of stroke; Z83.49 Family history of other endocrine, nutritional and metabolic diseases; Z79.899 Other long term (current) drug therapy
CPT/HCPCS: 43239